=== PATIENT | female | born 1985 | race Caucasian/White ===

== ENCOUNTER 2024-12-24 07:28 | Outpatient (OUT) | payer OTHER, SELFPAY ==
[2024-12-24 07:58] LABS: Basophils Percent Auto 0.8 % (0.2-2.0); Eosinophils Absolute Auto 0.2 10^3/uL (0.0-0.7); Hematocrit 43.1 % (36.0-48.0); Hemoglobin 15.2 g/dL (12.0-16.0); Immature Granulocytes Abs Auto 0.01 10^3/uL (0.00-0.03); Immature Granulocytes Pct Auto 0.2 % (0.0-0.5); Lymphocytes Absolute Auto 2.5 10^3/uL (1.2-3.8); Lymphocytes Percent Auto 51.8 % (20.5-60.0); Mean Corpuscular HGB Conc 35.3 g/dL (29.9-35.2); Mean Corpuscular Hemoglobin 29.4 pg (26.7-34.0); Mean Corpuscular Volume 83.4 fL (81.0-99.0); Mean Platelet Volume 8.6 fL (9.5-13.5); Monocytes Absolute Auto 0.4 10^3/uL (0.3-0.8); Monocytes Percent Auto 8.6 % (1.7-12.0); Neutrophils Absolute Auto 1.6 10^3/uL (1.4-6.5); Neutrophils Percent Auto 33.6 % (43.0-75.0); Platelet Count 301 10^3/uL (150-450); Red Blood Count 5.17 10^6/uL (4.20-5.40); Red Cell Distribution Width 11.6 % (11.0-15.0); White Blood Count 4.8 10^3/uL (4.0-11.0)
[2024-12-24 08:15] LABS: Estimated Average Glucose 94 mg/dL; Glycohemoglobin A1C 4.9 % (4.5-6.2)
[2024-12-24 08:52] LABS: Alanine Aminotransferase 21 U/L (14-59); Albumin Globulin Ratio 1.3; Albumin Level 3.8 g/dL (3.4-5.0); Alkaline Phosphatase 39 U/L (46-116); Aspartate Amino Transferase 20 U/L (15-37); BUN Creatinine Ratio 10.5; Bilirubin Total 0.5 mg/dL (0.2-1.0); Calcium 9.1 mg/dL (8.5-10.1); Carbon Dioxide 29.1 mmol/L (21.0-32.0); Chloride 104 mmol/L (98-107); Chol HDL Ratio 3.2; Cholesterol 247 mg/dL (<=200); Estimated GFR (African America >60 (>=60 mL/min/1.73m^2); Estimated GFR (Non-African Ame 53 (>=60 mL/min/1.73m^2); Free T3 2.97 pg/mL (2.18-3.98); Glucose 101 mg/dL (74-106); HDL Cholesterol 76 mg/dL (40-60); Potassium 4.1 mmol/L (3.5-5.1); Sodium 139 mmol/L (136-145); Thyroid Stimulating Hormone 2.051 uIU/mL (0.358-3.740); Total Protein 6.8 g/dL (6.4-8.2); Triglycerides 141 mg/dL (<=150); VLDL CHOLESTEROL 28.2 mg/dL
== END 2024-12-24 07:29 | disposition home or self-care (01) ==
PROVIDERS: PCP Nurse Practitioner Family; Visit Provider Nurse Practitioner Family
DX: Z00.00 Encounter for general adult medical examination without abnormal findings (principal); R73.09 Other abnormal glucose; E03.9 Hypothyroidism, unspecified; E55.9 Vitamin D deficiency, unspecified
CPT/HCPCS: 36415; 80053; 80061; 82306; 83036; 83525; 83540; 84436; 84443; 84481; 85025

== ENCOUNTER 2025-01-03 07:53 | Outpatient (OUT) | payer OTHER, SELFPAY ==
[2025-01-03 09:50] LABS: Alanine Aminotransferase 16 U/L (14-59); Albumin Globulin Ratio 1.3; Albumin Level 3.9 g/dL (3.4-5.0); Alkaline Phosphatase 38 U/L (46-116); Anion Gap 15.2; Aspartate Amino Transferase 21 U/L (15-37); BUN Creatinine Ratio 9.9; Bilirubin Total 0.4 mg/dL (0.2-1.0); Calcium 9.2 mg/dL (8.5-10.1); Carbon Dioxide 26.4 mmol/L (21.0-32.0); Chloride 105 mmol/L (98-107); Estimated GFR (African America >60 (>=60 mL/min/1.73m^2); Estimated GFR (Non-African Ame 55 (>=60 mL/min/1.73m^2); Globulin 2.9 g/dL; Glucose 104 mg/dL (74-106); Potassium 3.6 mmol/L (3.5-5.1); Sodium 143 mmol/L (136-145); Total Protein 6.8 g/dL (6.4-8.2)
== END 2025-01-03 07:54 | disposition home or self-care (01) ==
LOC: LAB 07:55
PROVIDERS: PCP Nurse Practitioner Family; Visit Provider Nurse Practitioner Family
DX: R94.4 Abnormal results of kidney function studies (principal)
CPT/HCPCS: 36415; 80053

== ENCOUNTER 2025-01-10 07:18 | Outpatient (OUT) | payer OTHER, SELFPAY ==
--- NOTE | 2025-01-10 | US_ITS ---
The [address] [address] Patient Name: EVELINE MCLEAN MRN: [id number] date: 1985 Sex: F Assigned Patient Location: US Current Patient Location: US Accession/Order Number: [id number] Exam Date: 01/10/2025 08:24 Report Date: 01/10/2025 08:26 At the request of: ANGELO MCKINNEY Procedure: US renal bladder BILATERAL RENAL AND BLADDER ULTRASOUND CLINICAL HISTORY: DECREASED GFR R94.4 COMPARISON: None FINDINGS: Estimation of renal size is approximately 10.3 cm on the right and 10.9 cm on the left. No hydronephrosis. 4 mm stone inferior pole right kidney. The urinary bladder is partially distended with a volume of 285 ml. No shadowing stone or focal lesion. No significant postvoid residual. US/US renal bladder IMPRESSION: RIGHT NEPHROLITHIASIS. NO HYDRONEPHROSIS. Impression dictated by: Jose Melchor Jr., D.O. 01/10/2025 8:26 AM Dictation Location: [place] [address] Electronically authenticated by: [id number] Y Date: 01/10/2025 08:26
[2025-01-10 08:25] LABS: Bilirubin Urine NEGATIVE (NEGATIVE); Blood Urine NEGATIVE (NEGATIVE); Clarity Urine CLEAR (CLEAR); Color Urine LT. YELLOW (YELLOW); Glucose Urine UA NEGATIVE (NEGATIVE); Ketones Urine NEGATIVE (NEGATIVE); Leukocyte Esterase Urine NEGATIVE (NEGATIVE); Nitrite Urine NEGATIVE (NEGATIVE); Protein Urine NEGATIVE (NEG/TRACE); Specific Gravity Urine <=1.005 (1.005-1.025); Urobilinogen Urine 0.2 EU/dL (0.2-1.0)
[2025-01-10 08:36] LABS: Bacteria Urine NONE SEEN #/HPF (NONE SEEN); Cast Seen? NONE SEEN #/LPF (NONE SEEN); Crystals Seen? None Seen #/HPF (None Seen); Mucus Urine NONE SEEN (NONE SEEN); RBC Urine 0-2 #/HPF (0-2); Squamous Epithelial Cell Urine RARE #/LPF (NONE/RARE); Urine Culture Indicated NO; WBC Urine 0-2 #/HPF (NONE SEEN)
[2025-01-10 08:46] LABS: Microalbumin Urine Random <1.3 mg/dL (<=30.0)
== END 2025-01-10 07:19 | disposition home or self-care (01) ==
LOC: US 07:19
PROVIDERS: PCP Nurse Practitioner Family; Visit Provider Nurse Practitioner Family
DX: R94.4 Abnormal results of kidney function studies (principal); N20.0 Calculus of kidney
CPT/HCPCS: 76770; 81001; 82043